=== PATIENT | male | born 1950 | race Caucasian/White ===

== ENCOUNTER 2020-02-28 08:30 | Inpatient (IN) ==
--- NOTE | 2020-02-04 15:32 | PAT Medication Instructions ---
Medication Instructions Date of Service February 04, 2020 Home Medications allopurinol 100 mg PO UD amlodipine 2.5 mg PO BID aspirin 81 mg PO QPM carvedilol 12.5 mg PO BID clopidogrel 75 mg PO QAM losartan 50 mg PO BID metformin 1,000 mg PO BID omeprazole 20 mg PO QAM pravastatin 40 mg PO BID tamsulosin 0.4 mg PO QAM terazosin 5 mg PO QPM ASK your prescriber and surgeon aspirin 81 mg PO QPM clopidogrel 75 mg PO QAM DO NOT take the morning of surgery losartan 50 mg PO BID metformin 1,000 mg PO BID Take morning of surgery With a small sip of water, OTHERWISE NOTHING TO EAT OR DRINK AFTER MIDNIGHT: allopurinol 100 mg PO UD amlodipine 2.5 mg PO BID carvedilol 12.5 mg PO BID omeprazole 20 mg PO QAM pravastatin 40 mg PO BID tamsulosin 0.4 mg PO QAM Take evening before surgery allopurinol 100 mg PO UD amlodipine 2.5 mg PO BID carvedilol 12.5 mg PO BID losartan 50 mg PO BID metformin 1,000 mg PO BID pravastatin 40 mg PO BID terazosin 5 mg PO QPM Other Notes If you have any questions please call us at [phone] or [phone] or [phone] or [phone]
--- NOTE | 2020-02-08 09:24 | Anesthesiology Consultation ---
Date of Service February 08, 2020 Assessment & Plan (1) Encounter for pre-operative examination: *Per PAT assessment on 02/07: Travel screen- Lives in [place]. Travel to [facility] for doctor appt. No other travel in past 30 days. Uses PPE. No kno wn COVID-19 positive contacts. No current COVID-19 related symptoms. Surgeon arranging preop COVID testing. Awaiting results. 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 CABG 1996. 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 Denies angina. No dyspnea. No change in occasional pedal edema or fatigue. F/U 6 months recommended. - ASA/plavix instructions per surgeon/prescriber. - Check BSG AM DOS Chart Review Chart Review: Acceptable Risk for Surgery and Patient seen in Pre Admission Testing Teaching & Discussion Pre-Anesthesia Teaching/Discussion Notes: Instructed NPO after midnight before surgery,except medications with 15 cc of water. Medication instructions provided according to the PAT guidelines. History Surgery Operation Date: 02/28/20 07:45 Proposed Procedures p L2-S1 Decompression and Fusion, Spinal Cord Monitoring - Erlin Lopez DO Height/Weight Height: 6 ft Weight: 124.1 kg Allergies Allergy/AdvReac Type Severity Reaction Status Date / Time iodine Allergy Vomiting Verified 02/02/20 09:49 shrimp Allergy Vomiting Verified 02/02/20 09:49 erythromycin base AdvReac Diarrhea Verified 02/02/20 09:49 Medications Home Medications Medication Instructions Recorded Confirmed Last Taken allopurinol 100 mg PO UD 02/02/20 02/02/20 Unknown amlodipine 2.5 mg PO BID 02/02/20 02/02/20 Unknown aspirin 81 mg PO QPM 02/02/20 02/02/20 Unknown carvedilol 12.5 mg PO BID 02/02/20 02/02/20 Unknown clopidogrel 75 mg PO QAM 02/02/20 02/02/20 Unknown losartan 50 mg PO BID 02/02/20 02/02/20 Unknown metformin 1,000 mg PO BID 02/02/20 02/02/20 Unknown omeprazole 20 mg PO QAM 02/02/20 02/02/20 Unknown pravastatin 40 mg PO BID 02/02/20 02/02/20 Unknown tamsulosin 0.4 mg PO QAM 02/02/20 02/02/20 Unknown terazosin 5 mg PO QPM 02/02/20 02/02/20 Unknown Past Medical History Medical History (Updated 02/09/20 @ 15:19 by Hedy Koch) CAD (coronary artery disease) CABG x4 (20+ years ago) Chronic kidney disease (CKD) follows with nephrology (Dr. Wallace/Jose) DM type 2 (diabetes mellitus, type 2) NIDDM Frequent urination at night GERD (gastroesophageal reflux disease) controlled Gout History of myocardial infarction 2016 HTN (hypertension) Hyperlipemia Obesity SHABBIR (obstructive sleep apnea) previously on CPAP- "no longer requires CPAP" since weight loss Osteoarthritis Spinal stenosis Exercise / Class Metabolic Activity III < 4 Walking/Shop/Light housework Past Family History Family History Uncle Diabetes Grandmother (Paternal) Diabetes Colon cancer Aunt Colon cancer Other No family history of adverse response to anesthesia Past Surgical History Surgical History History of cardiac cath multiple, most recent 2016- [place], [place] (no stents) History of colonoscopy History of coronary artery bypass graft CABG x4 (20+ years ago) History of esophagogastroduodenoscopy (EGD) History of inguinal hernia repair Left History of repair of right rotator cuff History of tonsillectomy History of tooth extraction Past Anesthesia History No Hx of Anesthesia Complications and No Family Hx of Anesthesia Complications History of PONV No Hx of PONV and No Hx of Motion Sickness Social History Smoking Status: Never smoker Do You Dip or Chew Tobacco: No Hx Alcohol Use: Yes Alcohol type: beer and hard liquor alcohol intake frequency: a few times a month Hx Substance Use: No substance use type: does not use Review of Systems Patient denies chest pain, shortness of breath, fever, chills, cough, wheezing, palpitations. Physical Exam Vital Signs VITALS BP 133/70 P 54 TEMP 98.3 SP02 95%RA RESP 18 PHYSICAL Full neck and c-spine range of motion. Full TMJ range of motion. TMD 3.5 finger breaths Mallampati Score 3 Dentition: missing upper left side tooth, + 3 caps upper front Lungs: clear throughout to auscultation Cardiac: regular rate and rhythm, no murmurs noted Spine: normal Carotid arteries: negative bruit Extremities: no edema Short neck Testing Laboratory Results PT 10.7 Seconds (9.0-12.0) 02/08/20 09:45 INR 1.0 (0.9-1.1) 02/08/20 09:45 APTT 31.5 Seconds (21.0-31.0) H 02/08/20 09:45 Urine Color Yellow 02/08/20 09:45 Urine Appearance Clear (Clear) 02/08/20 09:45 Urine pH 5.0 (4.5-7.5) 02/08/20 09:45 Ur Specific Barney 1.017 (1.000-1.030) 02/08/20 09:45 Urine Protein 3+ (Negative) H 02/08/20 09:45 Urine Glucose (UA) Negative (Negative) 02/08/20 09:45 Urine Ketones Negative (Negative) 02/08/20 09:45 Urine Nitrite Negative (Negative) 02/08/20 09:45 Ur Leukocyte Esterase Negative (Negative) 02/08/20 09:45 Urine WBC (Auto) 1-5 /hpf (0-5) 02/08/20 09:45 Urine RBC (Auto) 5-10 /hpf (0-4) H 02/08/20 09:45 U Hyaline Cast (Auto) 1-5 /lpf (0-5) 02/08/20 09:45 U Epithel Cells (Auto) 20-30 /lpf (0-5) H 02/08/20 09:45 Urine Bacteria (Auto) Negative (Negative) 02/08/20 09:45 Blood Type O Positive 02/08/20 09:45 Antibody Screen NEGATIVE 02/08/20 09:45 02/03/20 WBC 8.0 H/H 14.1/43.0 PLATELETS 227 SODIUM 139 POTASSIUM 4.2 CHLORIDE 106 CO2 24 BUN 28 CREATININE 1.6 GLUCOSE 109 12/09/19 HGBA1C 5.5% Electrocardiogram Date: 02/08/20 SB with first degree AVB. Low voltage QRS. unconfirmed report- report can be found in MUSE system Chest X-Ray Date: 02/08/20 FINDINGS: Cardiac silhouette is mildly enlarged. The lungs are clear. No pleural effusions. No pneumothorax. Poststernotomy changes. IMPRESSION: Mild cardiomegaly. Otherwise, no acute process within the chest. Echocardiogram Date: 11/07/15 EF 50%. Mild cLVH. Mild RVD. Slight LAD. Mild RAD. Mild MR.
--- NOTE | 2020-02-08 10:20 | XRay Report ---
XR chest 2V PA/lateral HISTORY: PREOP COMPARISON: None. FINDINGS: Cardiac silhouette is mildly enlarged. The lungs are clear. No pleural effusions. No pneumo thorax. Poststernotomy changes. IMPRESSION: Mild cardiomegaly. Otherwise, no acute process within the chest. ACT 112: Negative or not required by law. Electronically signed by: Aroldo Bueno M.D. 02/08/2020 10:18 AM
[2020-02-08 10:49] LABS: Appearance Urine Clear (Clear); Bacteria Urine Automated Negative (Negative); Bilirubin Urine Negative (Negative); Blood Urine Negative (Negative); Color Urine Yellow; Epithelial Cell Urine Auto 20-30 /lpf (0-5); Glucose Urine UA Negative (Negative); Ketones Urine Negative (Negative); Leukocyte Esterase Urine Negative (Negative); Nitrite Urine Negative (Negative); Protein Urine 3+ (Negative); Specific Gravity Urine 1.017 (1.000-1.030); Urobilinogen Urine Negative (Negative)
[2020-02-08 11:02] LABS: Partial Thromboplastin Ratio 1.1; Partial Thromboplastin Time 31.5 Seconds (21.0-31.0); Prothrombin Time 10.7 Seconds (9.0-12.0)
[~2020-02-28 08:30] MED LIST: ACETAMINOPHEN 500 MG TAB PO SCH; ALBUMIN HUMAN 5% 12.5 GM/250 ML VIAL IV ONE; CEFAZOLIN 3000MG 72.5 ML IV SCH; CeleBREX 200 MG CAP PO SCH; GABAPENTIN 300 MG CAP PO SCH; LR 15ML/HR IV SCH
[2020-02-28] MEDS ORDERED: ONDANSETRON INJ 2 MG/ML 2 ML VIAL IV PRN ×2 (08:59→15:16)
[2020-02-28] MEDS ORDERED: ATROPINE SULFATE 0.1 MG/ML 10ML SYR IV PRN (08:59)
[2020-02-28] MEDS ORDERED: PROMETHAZINE HCL 6.25 MG in SODIUM CHLORIDE 0.9% 50 ML IV PRN (08:59)
[2020-02-28] MEDS ORDERED: HYDROmorphone INJ 2 MG/ML SYR/VIAL IV PRN (08:59)
[2020-02-28] MEDS ORDERED: ePHEDrine sulfate 50 MG/ML AMP IV PRN (08:59)
--- NOTE | 2020-02-28 09:31 | History & Physical Bridge Note ---
Date of Service February 28, 2020 History & Physical Bridge Note I have examined the patient, reviewed the History & Physical and in the interval since the performance of the History & Physical I have noted the following changes of clinical significance: no changes noted
--- NOTE | 2020-02-28 09:32 | History & Physical Report ---
Date of Service February 28, 2020 Assessment & Plan (1) Neurogenic claudication due to lumbar spinal stenosis: Admission and Anticipated Discharge Date Admission Date: L2-S1 decompression fusion History of Present Illness Chief Complaint: Back and bilateral leg pain with weakness Primary Care Provider: Kit Navarro MD This is a 62-year-old male who presents with marked decline in status with back pain and bilateral leg weakness. After failing a course of nonoperative care is here for surgical intervention. Allergies Allergy/AdvReac Type Severity Reaction Status Date / Time erythromycin base AdvReac Severe Diarrhea Verified 02/28/20 09:02 iodine AdvReac Severe Vomiting Verified 02/28/20 09:02 shrimp AdvReac Severe Vomiting Verified 02/28/20 09:02 Home Medications Home Medications Medication Instructions Recorded Confirmed Type allopurinol 100 mg PO UD 02/02/20 02/28/20 History amlodipine [Norvasc] 2.5 mg PO BID 02/02/20 02/28/20 History aspirin 81 mg PO QPM 02/02/20 02/28/20 History carvedilol [Coreg] 12.5 mg PO BID 02/02/20 02/28/20 History clopidogrel 75 mg PO QAM 02/02/20 02/28/20 History losartan [Cozaar] 100 mg PO DAILY 02/02/20 02/28/20 History metformin 1,000 mg PO BID 02/02/20 02/28/20 History omeprazole 20 mg PO QAM 02/02/20 02/28/20 History pravastatin [Pravachol] 40 mg PO DAILY 02/02/20 02/28/20 History terazosin 5 mg PO QPM 02/02/20 02/28/20 History Past Med/Surg History Medical History (Updated 02/28/20 @ 09:32 by Erlin Lopez DO) CAD (coronary artery disease) CABG x4 (20+ years ago) Chronic kidney disease (CKD) follows with nephrology (Dr. Wallace/Jose) DM type 2 (diabetes mellitus, type 2) NIDDM Frequent urination at night GERD (gastroesophageal reflux disease) controlled Gout History of myocardial infarction 2016 HTN (hypertension) Hyperlipemia Obesity SHABBIR (obstructive sleep apnea) previously on CPAP- "no longer requires CPAP" since weight loss Osteoarthritis Spinal stenosis Surgical History History of cardiac cath multiple, most recent 2016- [facility], [place], [place] (no stents) History of colonoscopy History of coronary artery bypass graft CABG x4 (20+ years ago) History of esophagogastroduodenoscopy (EGD) History of inguinal hernia repair Left History of repair of right rotator cuff History of tonsillectomy History of tooth extraction Family History Uncle Diabetes Grandmother (Paternal) Diabetes Colon cancer Aunt Colon cancer Other No family history of adverse response to anesthesia Social History Smoking Status: Never smoker Second Hand Exposure: Yes ( is a smoker); Do You Dip or Chew Tobacco: No; Hx Alcohol Use: Yes Alcohol type: beer and hard liquor Hx Substance Use: No Preferred Language: Cuban Communication Ability: Effective Change Management Analyst Required: No Beliefs That Will Affect Care: None Current Living Situation: Spouse Feels Safe at Home: Yes Safety Concerns: Feels Safe At This Time Physical Exam Physical Exam: Patient alert and oriented with weakness to testing lower extremities. Heart regular rhythm. Lungs clear to auscultation. Results & Data ([facility]) Vital Signs (Past 12 Hours) Vital Signs Temp Pulse Resp BP Pulse Ox 02/28/20 09:09 37.3 C 61 20 185/97 H 96
[2020-02-28] MEDS ORDERED: BACITRACIN INJ 50,000 UNIT VIAL ONE (09:48)
[2020-02-28] MEDS ORDERED: BUPIVACAINE/EPINEPHRINE 0.25% 1:200,000 30 ML VIAL ONE (09:48)
[2020-02-28] MEDS ORDERED: fentaNYL citrate 100 MCG/2 ML VIAL ONE (09:49)
[2020-02-28] MEDS ORDERED: HYDROmorphone INJ 2 MG/ML SYR/VIAL ONE (09:49)
[2020-02-28] MEDS ORDERED: MIDAZOLAM HCL 1 MG/ML 2ML VIAL ONE (09:49)
[2020-02-28] MEDS ORDERED: PROPOFOL IV EMULSION 10 MG/ML 20 ML VIAL IV ONE (12:02)
[2020-02-28] MEDS ORDERED: ONDANSETRON INJ 2 MG/ML 2 ML VIAL ONE (12:02)
[2020-02-28] MEDS ORDERED: SUCCINYLCHOLINE CHLORIDE 20 MG/ML 10 ML VIAL IV ONE (12:02)
[2020-02-28] MEDS ORDERED: DEXAMETHASONE SOD INJ 4 MG/ML VIAL ONE (12:02)
[2020-02-28] MEDS ORDERED: NEOSTIGMINE METHYLSULFATE 1 MG/ML 10ML VIAL ONE (12:02)
[2020-02-28] MEDS ORDERED: GLYCOPYRROLATE 0.2 MG/ML VIAL ONE (12:02)
[2020-02-28] MEDS ORDERED: FLOSEAL HEMOSTATIC MATRIX 10ML TOP ONE (13:20)
[2020-02-28 13:25] LABS: iSTAT Creatinine 1.6 mg/dl (0.6-1.3); iSTAT Hemoglobin 11.6 g/dl (14.0-18.0); iSTAT Ionized Calcium 1.24 mmol/l (1.12-1.32); iSTAT Potassium 3.8 mmol/L (3.3-5.0)
--- NOTE | 2020-02-28 13:33 | Operative Report ---
Post Operative Report Pre & Post Diagnosis Operation Date: 02/28/20 09:55 Pre-Op Diagnosis: Spinal Stenosis, Lumbar Region with Neurogenic Claudication Post-Op Diagnosis: Spinal Stenosis, Lumbar Region with Neurogenic Claudication I identified the patient and participated in the time-out.: Yes Procedure Operation Date: 02/28/20 09:55 Actual Procedures 1. Lumbar decompression with bilateral medial facetectomies and foraminotomies L2-3, L3-4, L4-5 and L5-S1. #2 posterior spinal fusion L2-3, L3-4, L4-5 and L5- S1. #3 placement posterior segmental instrumentation L2-S1. #4 interbody fusion L4-5 and L5-S1. #5 placed a peek cage 9 x 26 mm at L4-5 and L5-S1. #6 placement locally harvested morselized autograft in the posterior lateral gutters. #7 placement infuse collagen sponge, master graft in the posterior gutters and ostial amp and interbody space. Surgeon Erlin Lopez, DO Transverse Abdominal Muscle Surgeon Marina Moses Estimated Blood Loss 600 Findings See Below Patient is 6 feet tall weighing over 121 kg with a BMI in excess of 36. This combined with an EBL of over 600 cc created significant technical difficulty. He required her deepest retractors and longus instruments in order to perform his procedure. This at least 50% increase to the operative time. Specimens None Indications This is a 62-year-old male who presents with above-mentioned diagnosis after failing stent graft care is here for evaluation procedure. Description of Procedure Patient was met with identified informed consent obtained. Patient was then taken to the operative suite underwent an patient placed in a prone position on the [place] table on top of the Gregory frame. All bony prominences well-padded eyes inspected to ensure no external pressure placed upon them. This point the lumbar spine is prepped and draped in a sterile fashion. Sharp dissection with the assistance of Bovie cautery was performed down to and exposing the lamina and transverse processes of L2-L3-L4 L5 and S1 levels bilaterally. From caudal cephalad fashion complete laminectomy of L5 L4 L3 and L2 was performed including bilateral medial facetectomies and foraminotomies at addressing severe spinal stenosis. Pedicle screws were then placed in L2 L3-L4-L5 and S1 levels bilaterally with assistance of fluoroscopy and the appropriately sized indira was placed. By way of a transfemoral approach on the right complete discectomy of L5-S1 was performed endplates coated to subcortical bleeding bone and a 9 x 26 mm peek cage filled with osteo-bone graft tapped in position. Then proceeded to L4-[address] of a trans-foraminal approach on the right a complete discectomy was performed endplates coated to subcortical being bone and again a 9 x 26 mm peek cage filled with osteo-bone graft tapped in position. The rods were then locked into final position bilaterally. The transverse processes of L2-L3-L4 L5 and sacral ala burred to subcortical bleeding bone. Infuse collagen sponge master graft local autograft was placed in the posterior lateral gutters. 15 round VESNA drain inserted. The incision was then closed with 1 Vicryl in the fascia 2-0 Vicryl subcutaneously and 4 Monocryl for final skin closure. Steri- Strip sterile dressings placed. Patient waken taken PACU stable condition. Please note spinal cord monitoring was utilized at the procedure no changes noted. Lastly Marina Moses was present at the entire procedure involved the patient positioning complex portions of the surgery and final skin closure. I attest to the content of the Intraoperative Record and any orders documented therein. Any exceptions are noted below.
--- NOTE | 2020-02-28 13:40 | Fluoroscopy Report ---
[place] lumbar spine 2-3V CLINICAL HISTORY: L2-S1 DECOMP/FUSION COMPARISON STUDY: Lumbar spine MRI December 30, 2019. FLUOROSCOPY TIME: 29 seconds. FLUOROSCOPIC IMAGES: 4 FINDINGS: Fluoroscopy was provided for L4-L5 and L5-S1 discectomies with interbody spacer placement. The L4-5 spacer is within the anterior aspect of the disc space. Posterior decompression is noted. Bi lateral pedicle screws at the L2, L3, L4, L5 and S1 levels are noted with interconnecting rods. Hardw are is intact. There are no unexpected radiopaque foreign bodies. IMPRESSION: Fluoroscopy provided for L4-5 and L5-S1 discectomies with posterior decompression and bi lateral pedicle screw fusion from L2 through S1. ACT 112: Negative or not required by law. Electronically signed by: Delvin Chapman M.D. 02/28/2020 1:38 PM
[2020-02-28] MEDS: fentaNYL citrate 100 MCG/2 ML VIAL IV PRN ×2 (14:13→14:18)
--- NOTE | 2020-02-28 14:25 | Anesthesiology Progress Note ---
Date of Service February 28, 2020 Anesthesia Post Procedure Vital Signs Vital Signs: Temp Pulse Pulse Resp BP BP Pulse Ox 02/28/20 14:20 58 L 18 137/72 97 02/28/20 14:10 58 L 18 150/89 H 98 02/28/20 14:00 61 18 153/78 H 98 02/28/20 13:54 37.1 C 66 18 144/65 H 96 02/28/20 09:09 37.3 C 61 20 185/97 H 96 Transfer of Care Handoff Completed per policy Notes Mental Status: alert / awake / arousable Patient Amnestic to Procedure: Yes Nausea / Vomiting: adequately controlled Pain: adequately controlled Airway Patency, RR, SpO2: stable & adequate BP & HR: stable & adequate Hydration State: stable & adequate Anesthetic Complications: no major complications apparent
[2020-02-28] MEDS ORDERED: ALUMINUM/MAGNESIUM SUSP 30 ML UDC PO PRN (15:16)
[2020-02-28] MEDS ORDERED: DO NOT ADMINISTER PNEUMOCOCCAL VACCINE PRN (15:16)
[2020-02-28] MEDS ORDERED: SOD PHOSPHATE/SOD BIPHOSPHATE ENEMA 132 ML BTL PR PRN (15:16)
[2020-02-28] MEDS ORDERED: ONDANSETRON 4 MG OD TAB PO PRN (15:16)
[2020-02-28] MEDS ORDERED: ACETAMINOPHEN 1,000 MG/100 ML VIAL IV PRN (15:16)
[2020-02-28] MEDS ORDERED: HYDROmorphone INJ 1 MG/ML SYRINGE IV PRN (15:16)
[2020-02-28] MEDS ORDERED: HYDROmorphone INJ 0.5 MG/0.5 ML SYR IV PRN (15:16)
[2020-02-28] MEDS ORDERED: METOCLOPRAMIDE HCL INJ 5 MG/ML 2 ML VIAL IV PRN (15:16)
[2020-02-28] MEDS ORDERED: NALOXONE HCL 0.4 MG/1 ML VIAL/CARP IV PRN (15:16)
[2020-02-28] MEDS ORDERED: LORazepam 0.5 MG TAB PO PRN (15:16)
[2020-02-28] MEDS ORDERED: ACETAMINOPHEN 500 MG TAB PO PRN (15:16)
[2020-02-28] MEDS ORDERED: PROMETHAZINE HCL 12.5 MG in SODIUM CHLORIDE 0.9% 50 ML IV PRN (15:16)
[2020-02-28] MEDS ORDERED: MAGNESIUM HYDROXIDE SUSP 30 ML UDC PO PRN (15:16)
[2020-02-28] MEDS ORDERED: LORazepam 0.5 MG/1 ML VIAL IV PRN (15:16)
[2020-02-28] MEDS ORDERED: DO NOT ADMINISTER FLU VACCINE PRN (15:16)
[2020-02-28] MEDS ORDERED: bisacodyL 10 MG SUPP PR PRN (15:16)
[2020-02-28] MEDS ORDERED: FAMOTIDINE 20 MG TAB PO PRN (15:16)
[2020-02-28] MEDS ORDERED: GLUCOSE 10 TABS/TUBE PO PRN (16:19)
[2020-02-28] MEDS ORDERED: GLUCOSE 40% GEL 15 GM TUBE PO PRN (16:19)
[2020-02-28] MEDS: TRAMADOL HCL 50 MG TABLET PO PRN (16:19)
[2020-02-28] MEDS ORDERED: CARBOHYDRATES FOR HYPOGLYCEMIA PO PRN (16:19)
[2020-02-28] MEDS ORDERED: GLUCAGON FOR INJ 1 MG VIAL SQ PRN (16:19)
[2020-02-28] MEDS ORDERED: DEXTROSE 50% 50 ML SYRINGE IV PRN (16:19)
[2020-02-28] MEDS: SODIUM CHLORIDE 0.9% 1000ML 1,000 ML IV SCH ×2 (16:20→21:52)
[2020-02-28] MEDS ORDERED: ESMOLOL HCL INJ 10 MG/ML 10ML VIAL IV ONE (17:01)
--- NOTE | 2020-02-28 17:16 | Hospitalist Consultation ---
Date of Consultation February 28, 2020 Assessment & Plan (1) S/P spinal surgery: This is a 70yo M with a PMH of CAD with h/o CABG, DM II, HTN, gout and other medical problems listed below who is POD#0 s/p L2-S1 decompression and fusion by Dr. Lopez. -POD#0 s/p L2-S1 decompression and fusion by Dr. Lopez -Pt is doing well post-operatively -Per ortho for pain control, wound care, anticoagulation and activities -Monitor H&H (EBL: 600ml, VESNA output: 270ml, post op hgb 11.6- baseline unknown), continue incentive spirometry, PT/OT when appropriate -Repeat H&H this evening at 2000 (2) DM type 2 (diabetes mellitus, type 2): A1c pending -Hold home agents -SSI while in-patient -BSG AC HS (3) CAD (coronary artery disease): H/o CABG >20 years ago. Recent cardiac catheterization 02/25/20 with instruction to continue medical treatment for secondary prevention of CAD -Continue baby aspirin, statin, beta-damian -Plavix held, per orthopedic service (4) HTN (hypertension): Continue carvedilol (5) Chronic kidney disease (CKD): CKD documented in chart, no baseline Cr available but postop Cr of 1.6. BMP scheduled for tomorrow AM -Plan to hold losartan in AM (6) Urinary retention: Continue terazosin. Monitor with bladder scans PRN once davis catheter is removed (7) GERD (gastroesophageal reflux disease): Continue PPI PCP: Kit Navarro Dispo: Per primary service Patient seen in collaboration with Dr. Eldridge. Please see addendum. Supervising Physician Co-Signing Physician Notes Attending Addendum: care coordinated with BANDAR Mohr please refer to her notes for full details, I agree with her notes patient seen and examined, records reviewed by myself as well on exam, patient seen resting in chair, comfortable, oriented x 3 states he feels fine overall denies pain at the time of my exam no chest pain, dyspnea, dizziness, palpitations no other symptoms VS noted and reviewed oriented x 3 , not in distress, speaks in sentences with no effort nor accessory muscle use normal rate, regular rhythm, no murmurs clear breath sounds bilaterally non distended, soft, nontender back: dressing in place- no bleeding, discharge VESNA drain in place- minimal blood noted no bipedal edema, erythema, warmth no neuro deficits Hg 11.6 Crea 1.6 ASSESSMENT AND PLAN S/P BACK SURGERY EBL 600 repeat Hg pending at 8pm HISTORY OF CAD Plavix on hold per Ortho, resume when ok with Ortho SVC continue ASA, Carvedilol HYPERTENSION BP on the low normal side hold Amlodipine, Losartan continue Carvedilol monitor BP and resume BP meds accordingly other diagnoses and plan of care as per BANDAR Mohr's notes Renato Eldridge MD History of Present Illness Reason for Consultation: post op medical mgmt Attending Physician: Erlin Lopez, DO History of Present Illness This is a 70yo M with a PMH of CAD with h/o CABG, DM II, HTN, gout and other medical problems listed below who is POD#0 s/p L2-S1 decompression and fusion by Dr. Lopez. Patient is feeling well postoperatively. Endorses some surgical site pain but denies paresthesias or weakness. Denies nausea, vomiting or abdominal pain. No lightheadedness, chest pain, palpitations, SOB, dysuria, diarrhea or constipation. Last bowel movement was this morning. Allergies Allergy/AdvReac Type Severity Reaction Status Date / Time erythromycin base AdvReac Severe Diarrhea Verified 02/28/20 09:02 iodine AdvReac Severe Vomiting Verified 02/28/20 09:02 shrimp AdvReac Severe Vomiting Verified 02/28/20 09:02 Home Medications Home Medications Medication Instructions Recorded Confirmed Type allopurinol 100 mg PO UD 02/02/20 02/28/20 History amlodipine [Norvasc] 2.5 mg PO BID 02/02/20 02/28/20 History aspirin 81 mg PO QPM 02/02/20 02/28/20 History carvedilol [Coreg] 12.5 mg PO BID 02/02/20 02/28/20 History clopidogrel 75 mg PO QAM 02/02/20 02/28/20 History losartan [Cozaar] 100 mg PO DAILY 02/02/20 02/28/20 History metformin 1,000 mg PO BID 02/02/20 02/28/20 History omeprazole 20 mg PO QAM 02/02/20 02/28/20 History pravastatin [Pravachol] 40 mg PO HS 02/02/20 02/28/20 History terazosin 5 mg PO QPM 02/02/20 02/28/20 History Patient History Medical History (Updated 02/28/20 @ 17:25 by Radha Mohr PA-C) CAD (coronary artery disease) CABG x4 (20+ years ago) Chronic kidney disease (CKD) follows with nephrology (Dr. Wallace/Jose) DM type 2 (diabetes mellitus, type 2) NIDDM GERD (gastroesophageal reflux disease) controlled Gout History of myocardial infarction 2016 HTN (hypertension) Hyperlipemia Obesity SHABBIR (obstructive sleep apnea) previously on CPAP- "no longer requires CPAP" since weight loss Osteoarthritis Spinal stenosis Urinary retention Surgical History (Updated 02/28/20 @ 17:26 by Radha Mohr PA-C) History of cardiac cath multiple, most recent 2016- [place], [place] (no stents) History of colonoscopy History of coronary artery bypass graft CABG x4 (20+ years ago) History of esophagogastroduodenoscopy (EGD) History of inguinal hernia repair Left History of repair of right rotator cuff History of tonsillectomy History of tooth extraction Family History Uncle Diabetes Grandmother (Paternal) Diabetes Colon cancer Aunt Colon cancer Other No family history of adverse response to anesthesia Social History Smoking Status: Never smoker Second Hand Exposure: Yes ( is a smoker); Do You Dip or Chew Tobacco: No; Hx Alcohol Use: Yes Alcohol type: beer and hard liquor Hx Substance Use: No Preferred Language: Portuguese Communication Ability: Effective Salesperson Men'S Furnishings Required: No Beliefs That Will Affect Care: None Current Living Situation: Spouse Feels Safe at Home: Yes Safety Concerns: Feels Safe At This Time Review of Systems Review of Systems: At least ten systems reviewed and negative except as noted in the HPI. Physical Exam Physical Exam: General Appearance: WD/WN, vitals as above, NAD, sitting up in bed, pleasant, conversing easily Head: normocephalic, atraumatic Eyes: normal inspection, PERRL, conjunctivae normal, anicteric sclerae ENT: external ear and nose normal, oropharynx normal Neck: normal visual inspection, trachea midline, no thyromegaly Respiratory: normal respiratory effort, lungs clear to auscultation, no wheeze, rales, rhonchi Cardiovascular: regular rate, rhythm, no murmur, normal peripheral pulses, no BLE edema Abdomen/GI: normal bowel sounds, soft, nontender, no hepatosplenomegaly Extremities/Musculoskeletal: + Lumbosacral dressing clean, dry, intact. + VESNA drain visualized. No cyanosis or clubbing, extremities motor strength 5/5 Neurologic: PERRL, CN's II-XI intact bilaterally and moves all extremities Psychiatric: A+Ox3, euthymic affect Skin: no rashes, normal color, warm/dry Results & Data Results & Data ([facility]) Vital Signs (Past 12 Hours) Vital Signs Temp Pulse Pulse Pulse Resp BP BP 02/28/20 15:56 36.7 C 50 L 17 160/74 H 02/28/20 15:18 36.5 C 57 L 16 170/85 H 02/28/20 14:30 36.9 C 61 18 138/81 02/28/20 14:20 58 L 18 137/72 02/28/20 14:10 58 L 18 150/89 H 02/28/20 14:00 61 18 153/78 H 02/28/20 13:54 37.1 C 66 18 144/65 H 02/28/20 09:09 37.3 C 61 20 185/97 H Pulse Ox 02/28/20 15:56 96 02/28/20 15:18 97 02/28/20 14:30 99 02/28/20 14:20 97 02/28/20 14:10 98 02/28/20 14:00 98 02/28/20 13:54 96 02/28/20 09:09 96
[2020-02-28] MEDS: CEFAZOLIN 2000MG 2,000 MG/15 ML SYR IV SCH (18:06)
[2020-02-28] MEDS: INSULIN ASPART 100 UNITS/ML 3 ML PEN SC SCH ×2 (18:08→21:45)
[2020-02-28 20:41] LABS: Hematocrit (blood only) 32.6 % (42-52); Hemoglobin 11.2 g/dL (14.0-18.0)
[2020-02-28] MEDS ORDERED: AMLODIPINE BESYLATE 5 MG TAB PO SCH (21:00)
[2020-02-28] MEDS: carvediloL 12.5 MG TAB PO SCH (21:41)
[2020-02-28] MEDS: TERAZOSIN HCL 5 MG CAP PO SCH (21:46)
[2020-02-28] MEDS: allopurinoL 100 MG TAB PO SCH (21:48)
[2020-02-28] MEDS: DOCUSATE SODIUM/SENNA 50/8.6MG TAB PO SCH (21:49)
[2020-02-28] MEDS: ASPIRIN 81 MG ECTAB PO SCH (21:50)
[2020-02-29] MEDS: TRAMADOL HCL 50 MG TABLET PO PRN ×3 (01:54→16:42)
[2020-02-29] MEDS: CEFAZOLIN 2000MG 2,000 MG/15 ML SYR IV SCH (01:54)
[2020-02-29] MEDS: SODIUM CHLORIDE 0.9% 1000ML 1,000 ML IV SCH (04:16)
[2020-02-29] MEDS: POLYETHYLENE (MIRALAX) 17 GM PACK PO SCH ×3 (05:31→17:18)
[2020-02-29 06:12] LABS: Hematocrit (blood only) 28.7 % (42-52); Immature Granulocytes # (auto) 0.01 K/uL (0.00-0.02); Immature Granulocytes % (auto) 0.1 %; Lymphocytes # (auto) 0.92 K/uL (1.2-3.4); Lymphocytes % (auto) 9.6 %; Mean Corpuscular Hemoglobin 31.3 pg (25-34); Mean Corpuscular Hgb Conc 34.8 g/dL (32-36); Monocytes # (auto) 0.83 K/uL (0.11-0.59); Monocytes % (auto) 8.7 %; Neutrophils # (auto) 7.81 K/uL (1.4-6.5); Neutrophils % (auto) 81.6 %; Platelet Count 175 K/uL (130-400); RDW Coefficient of Variation 13.4 % (11.5-14.5); RDW Standard Deviation 43.9 fL (36.4-46.3); Red Blood Count 3.19 M/uL (4.7-6.1); White Blood Count 9.57 K/uL (4.8-10.8)
[2020-02-29 06:45] LABS: BUN Creatinine Ratio 17.2 (10-20); Calcium 8.1 mg/dl (8.5-10.1); Creatinine Clr Calc Pharmacy 67.9 ml/min; Est GFR (African American) 59.4; Est GFR (Non-African American) 51.3
[2020-02-29 06:53] LABS: Estimated Average Glucose 120 mg/dl; Hemoglobin A1C 5.8 % (4.5-5.6)
[2020-02-29] MEDS: allopurinoL 100 MG TAB PO SCH ×2 (09:03→21:43)
[2020-02-29] MEDS: carvediloL 12.5 MG TAB PO SCH ×2 (09:03→21:41)
[2020-02-29] MEDS: PANTOprazole 40 MG TAB PO SCH (09:03)
[2020-02-29] MEDS: PRAVASTATIN SOD 40 MG TAB PO SCH (09:04)
[2020-02-29] MEDS: INSULIN ASPART 100 UNITS/ML 3 ML PEN SC SCH ×4 (09:08→22:26)
--- NOTE | 2020-02-29 09:56 | Orthopedic Progress Note ---
Date of Service February 29, 2020 Assessment & Plan (1) Neurogenic claudication due to lumbar spinal stenosis: Admission and Anticipated Discharge Date Admission Date: February 28, 2020 This time continue physical therapy monitor his VESNA output anticipate discharge home in the next few days. Subjective Patient's back pain is controlled leg symptoms improved. Physical Exam Physical Exam: Patient has good strength testing appears comfortable. Results & Data ([facility]) Vital Signs (Past 12 Hours) Vital Signs Temp Pulse Pulse Resp BP Pulse Ox 02/29/20 07:52 36.7 C 69 18 157/64 H 94 02/29/20 03:18 36.6 C 68 18 128/66 93 02/28/20 23:00 36.4 C L 50 L 20 114/65 92
--- NOTE | 2020-02-29 10:27 | Hospitalist Progress Note ---
Date of Service February 29, 2020 Assessment & Plan (1) S/P spinal surgery: This is a 70yo M with a PMH of CAD with h/o CABG, DM II, HTN, gout and other medical problems listed below who is POD#1 s/p L2-S1 decompression and fusion by Dr. Lopez. POD#1 s/p L2-S1 decompression and fusion by Dr. Lopez EBL #600ml, VESNA output total 720ml -Pt is doing well post-operatively -pain management per ortho -wound management per ortho -PT/OT as appropriate -DVT prophylaxis per ortho - SCDs -incentive spirometry -Hgb:10.0, post op Hgb: 11.6. Unsure of pre-op Hgb. Continue to monitor H&H (2) DM type 2 (diabetes mellitus, type 2): A1c: 5.8 -Hold home agents -Novolog sliding scale per protocol -BSG AC HS (3) CAD (coronary artery disease): H/o CABG >20 years ago. Recent cardiac catheterization 02/25/20 with i nstruction to continue medical treatment for secondary prevention of CAD -Continue baby aspirin, statin, beta-damian -Plavix held, per orthopedic service; resume per ortho (4) HTN (hypertension): -Continue carvedilol -Resume losartan and Norvasc (5) Chronic kidney disease (CKD): CKD documented in chart, no baseline Cr available. Postop POC Cr of 1.6. Cr: 1.4 -Resume losartan (6) Urinary retention: -Continue terazosin. -Monitor with bladder scans PRN once davis catheter is removed (7) GERD (gastroesophageal reflux disease): Continue PPI PCP: Kit Navarro Dispo: Per primary service Patient seen in collaboration with Dr. Cannon. Please see addendum. Thank you for this consultation. We will follow the patient with you during their hospital stay. You can reach a member of the [facility] Hospitalist Team 20/01 via pager @ [phone]. Admission and Anticipated Discharge Date Admission Date: February 28, 2020 Supervising Physician Co-Signing Physician Notes I have seen and examined the patient and have discussed the case with the provider above. I agree with the assessment and plan as stated. My physical exam reflects that above. He is doing well overall. Thank you for this consultation and we will follow him throughout the rest of his hospitalization. DO Davis Subjective Pt seen and examined. Sitting up in bed. Reports back pain moderately controlle d. Reports less leg pain than prior to surgery, still with some numbness to right leg. Denies any SOB, CP, N/V. Eating and drinking well. Still has Davis cath in place. Had BM yesterday prior to surgery, no BM yet today. Is passing flatus. Denies fever/chills, diaphoresis, CHAVIS, dizziness, neck pain, palpitations, cough, abdominal pain, extremity weakness, extremity edema, rashes. Review of Systems Review of Systems: All systems reviewed & are unremarkable except as noted in HPI & below Physical Exam Physical Exam: General: no distress, obese Head: normocephalic, atraumatic Eyes: conjunctiva non-injected, anicteric ENT: normal inspection external ears, nose, mucous membranes moist Neck: supple, trachea midline Lungs: clear, no respiratory distress, no wheezing/rhonchi/rales CV: RRR, no murmur, no pretibial edema Abd: normal BS, soft, non-tender Ext: no cyanosis or erythema, + venous stasis skin discoloration bilateral lower legs, no calf tenderness; bilateral pedal pushes and pulls intact Neuro: A&O x 3, no focal deficits noted, normal affect Skin: warm, dry Results & Data Results & Data ([facility]) Vital Signs (Past 12 Hours) Vital Signs Temp Pulse Pulse Resp BP Pulse Ox 02/29/20 07:52 36.7 C 69 18 157/64 H 94 02/29/20 03:18 36.6 C 68 18 128/66 93 02/28/20 23:00 36.4 C L 50 L 20 114/65 92 Laboratory Results Short CBC 02/28/20 02/29/20 Range/Units 19:53 05:04 WBC 9.57 (4.8-10.8) K/uL Hgb 11.2 L 10.0 L (14.0-18.0) g/dL Hct 32.6 L 28.7 L (42-52) % Plt Count 175 (130-400) K/uL BMP 02/29/20 05:04 Sodium 138 Potassium 4.0 Chloride 106 Carbon Dioxide 26 BUN 24 H Creatinine 1.40 Glucose 126 H Calcium 8.1 L
--- NOTE | 2020-02-29 19:36 | Ultrasound Report ---
ULTRASOUND RIGHT LOWER EXTREMITY VENOUS CLINICAL HISTORY: Right calf pain and cramping. COMPARISON STUDY: No priors. TECHNIQUE: Real-time, grayscale, and color Doppler sonography of the deep veins of the right lower ex tremity was performed from the inguinal crease to the calf. Compression and augmentation were utilize d. FINDINGS: There is no sonographic evidence of deep venous thrombosis identified in the right lower ex tremity. The common femoral, superficial femoral, and popliteal veins are patent and normally denise sible. The greater saphenous vein and the profunda femoris vein at the junction with the common femor al vein are clear. The visualized calf veins are patent. IMPRESSION: There is no sonographic evidence of deep venous thrombosis identified in the right lower extremity. ACT 112: Negative or not required by law. Electronically signed by: Jarett Merlos M.D. 02/29/2020 7:34 PM
[2020-02-29] MEDS: TERAZOSIN HCL 5 MG CAP PO SCH (21:41)
[2020-02-29] MEDS: DOCUSATE SODIUM/SENNA 50/8.6MG TAB PO SCH (21:42)
[2020-02-29] MEDS: ASPIRIN 81 MG ECTAB PO SCH (21:44)
[2020-02-29] MEDS: AMLODIPINE BESYLATE 5 MG TAB PO SCH (21:46)
[2020-02-29] MEDS: OXYCODONE HCL IR 5 MG TAB (IMMEDIATE RELEASE) PO PRN (21:50)
[2020-03-01] MEDS: POLYETHYLENE (MIRALAX) 17 GM PACK PO SCH (03:34)
[2020-03-01] MEDS: TRAMADOL HCL 50 MG TABLET PO PRN ×3 (05:41→23:14)
[2020-03-01 06:10] LABS: Hematocrit (blood only) 25.3 % (42-52); Hemoglobin 8.8 g/dL (14.0-18.0); Mean Corpuscular Hemoglobin 31.5 pg (25-34); Mean Corpuscular Hgb Conc 34.8 g/dL (32-36); Mean Corpuscular Volume 90.7 fL (80-100); Mean Platelet Volume 10.6 fL (7.4-10.4); Platelet Count 164 K/uL (130-400); RDW Coefficient of Variation 13.7 % (11.5-14.5); RDW Standard Deviation 45.4 fL (36.4-46.3); Red Blood Count 2.79 M/uL (4.7-6.1); White Blood Count 8.54 K/uL (4.8-10.8)
[2020-03-01 06:53] LABS: BUN Creatinine Ratio 16.9 (10-20); Calcium 8.3 mg/dl (8.5-10.1); Creatinine Clr Calc Pharmacy 62.1 ml/min; Est GFR (African American) 53.4; Potassium 3.8 mmol/L (3.5-5.1)
[2020-03-01] MEDS: allopurinoL 100 MG TAB PO SCH ×2 (07:44→21:21)
[2020-03-01] MEDS: PRAVASTATIN SOD 40 MG TAB PO SCH (07:44)
[2020-03-01] MEDS: PANTOprazole 40 MG TAB PO SCH (07:44)
[2020-03-01] MEDS: AMLODIPINE BESYLATE 5 MG TAB PO SCH ×2 (07:44→21:20)
[2020-03-01] MEDS: OXYCODONE HCL IR 5 MG TAB (IMMEDIATE RELEASE) PO PRN ×3 (07:45→21:20)
[2020-03-01] MEDS: carvediloL 12.5 MG TAB PO SCH ×2 (07:45→21:20)
[2020-03-01] MEDS: LOSARTAN POTASSIUM 50 MG TAB PO SCH (07:45)
[2020-03-01] MEDS: INSULIN ASPART 100 UNITS/ML 3 ML PEN SC SCH ×4 (07:48→21:25)
--- NOTE | 2020-03-01 12:14 | Hospitalist Progress Note ---
Date of Service March 01, 2020 Assessment & Plan (1) Acute blood loss anemia: (2) S/P spinal surgery: 70yo M with a PMH of CAD with h/o CABG, DM II, HTN, gout who is POD#2 s/p L2-S1 decompression and fusion by Dr. Lopez. POD#2 s/p L2-S1 decompression and fusion by Dr. Lopez EBL #600ml, VESNA output total so far is 1170ml (though slowly improving day to day) Hb dropped from 10 to 8.8 Will continue to monitor Hb and transfuse as needed if <7 or symptomatic Pain management per ortho, well controlled Wound management per ortho PT/OT DVT prophylaxis per ortho - SCDs (3) DM type 2 (diabetes mellitus, type 2): A1c: 5.8 Continue to hold home agents Novolog sliding scale per protocol BSG AC HS (4) CAD (coronary artery disease): H/o CABG >20 years ago. Recent cardiac catheterization 02/25/20 with instruction to continue medical treatment for secondary prevention of CAD Continue aspirin 81mg , pravastatin, carvedilol Plavix held for now (5) HTN (hypertension): Controlled Continue carvedilol, losartan and Norvasc (6) Chronic kidney disease (CKD): CKD documented in chart, no baseline Cr available. Postop POC Cr of 1.6. Cr: 1.53 today Continue to monitor (7) Urinary retention: Continue terazosin. Monitor with bladder scans PRN once davis catheter is removed. Can remove davis once ok with Primary orthopedic team (8) GERD (gastroesophageal reflux disease): Continue PPI PCP: Kit Navarro Dispo: Per primary service Will follow the patient with you during their hospital stay. You can reach a [facility] via pager @ . Admission and Anticipated Discharge Date Admission Date: February 28, 2020 Subjective Patient seen and examined Reports some low back pain but stated this is better than yesterday. Still has drain with bloody drainage. Denied any dizziness, palpitation, SOB, REDDY Denied any chest pain, cough Denied any dysuria, hematuria. Denied abd pain, distension, diarrhea. Reports no BM since 02/27 Physical Exam Constitutional: + well hydrated and + obese; no acute distress Eyes: PERRL, conjunctivae normal, anicteric sclerae ENMT: external ear and nose normal, oropharynx normal Respiratory: normal respiratory effort, lungs clear to auscultation Cardiovascular: RRR, no murmur, no edema Gastrointestinal (Abdomen): normal bowel sounds, soft, nontender, no hepatosplenomegaly Musculoskeletal: Dressing over low back with some bloody stains VESNA drain in situ with bloody drainage Neurologic: PERRL, EOMI, accommodation nl, no face palsy, no dysarthria Psychiatric: A+Ox3, euthymic affect Results & Data Results & Data ([facility]) Vital Signs (Past 12 Hours) Vital Signs Temp Pulse Resp BP Pulse Ox 03/01/20 07:04 36.8 C 72 20 111/72 92 Laboratory Results Laboratory Results - last 24 hr 02/29/20 02/29/20 03/01/20 17:10 20:38 05:24 WBC 8.54 RBC 2.79 L Hgb 8.8 L Hct 25.3 L MCV 90.7 MCH 31.5 MCHC 34.8 RDW Std Deviation 45.4 RDW Coeff of Yola 13.7 Plt Count 164 MPV 10.6 H Sodium Potassium Chloride Carbon Dioxide Anion Gap BUN Creatinine Est Cr Clr Drug Dosing Est GFR ( Amer) Est GFR (Non-Af Amer) BUN/Creatinine Ratio Glucose POC Glucose 145 H 126 H Calcium 03/01/20 03/01/20 03/01/20 05:24 06:55 12:07 WBC RBC Hgb Hct MCV MCH MCHC RDW Std Deviation RDW Coeff of Yola Plt Count MPV Sodium 137 Potassium 3.8 Chloride 105 Carbon Dioxide 25 Anion Gap 7.0 BUN 26 H Creatinine 1.53 H Est Cr Clr Drug Dosing 62.1 Est GFR ( Amer) 53.4 Est GFR (Non-Af Amer) 46.0 BUN/Creatinine Ratio 16.9 Glucose 125 H POC Glucose 132 H 127 H Calcium 8.3 L
--- NOTE | 2020-03-01 13:43 | Orthopedic Progress Note ---
Date of Service March 01, 2020 Assessment & Plan (1) Neurogenic claudication due to lumbar spinal stenosis: Admission and Anticipated Discharge Date Admission Date: February 28, 2020 This time we will continue physical therapy monitor his VESNA output hopefully di gretta home in the next few days. We will have [facility] come in and fit him with this AFOs. Subjective Patient's back pain is controlled leg symptoms markedly improved. Physical Exam Physical Exam: Patient is in the chair at the bedside. Is good strength testing. Results & Data ([facility]) Vital Signs (Past 12 Hours) Vital Signs Temp Pulse Resp BP Pulse Ox 03/01/20 07:04 36.8 C 72 20 111/72 92
[2020-03-01] MEDS: POLYETHYLENE (MIRALAX) 17 GM PACK PO PRN (13:48)
[2020-03-01] MEDS: TERAZOSIN HCL 5 MG CAP PO SCH (21:21)
[2020-03-01] MEDS: ASPIRIN 81 MG ECTAB PO SCH (21:21)
[2020-03-01] MEDS: DOCUSATE SODIUM/SENNA 50/8.6MG TAB PO SCH (21:21)
[2020-03-02 07:13] LABS: Hematocrit (blood only) 23.2 % (42-52); Hemoglobin 8.1 g/dL (14.0-18.0); Mean Corpuscular Hemoglobin 31.5 pg (25-34); Mean Corpuscular Hgb Conc 34.9 g/dL (32-36); Mean Corpuscular Volume 90.3 fL (80-100); Mean Platelet Volume 10.7 fL (7.4-10.4); Platelet Count 174 K/uL (130-400); RDW Coefficient of Variation 13.8 % (11.5-14.5); RDW Standard Deviation 45.5 fL (36.4-46.3); Red Blood Count 2.57 M/uL (4.7-6.1); White Blood Count 7.79 K/uL (4.8-10.8)
[2020-03-02 07:44] LABS: Calcium 8.3 mg/dl (8.5-10.1); Creatinine Clr Calc Pharmacy 49.3 ml/min; Est GFR (African American) 40.3; Est GFR (Non-African American) 34.8; Potassium 3.7 mmol/L (3.5-5.1)
--- NOTE | 2020-03-02 08:02 | Orthopedic Progress Note ---
Date of Service March 02, 2020 Assessment & Plan (1) Neurogenic claudication due to lumbar spinal stenosis: Admission and Anticipated Discharge Date Admission Date: February 28, 2020 This time we will discontinue his [place] today continue to advance his bowel re giment monitor his progress anticipate discharge home tomorrow. Subjective Back pain controlled leg pain improved Physical Exam Physical Exam: Patient is in the chair at the bedside with strength testing. Results & Data ([facility]) Vital Signs (Past 12 Hours) Vital Signs Temp Pulse Pulse Resp BP Pulse Ox 03/02/20 07:55 36.9 C 80 16 110/65 92 03/01/20 23:12 36.7 C 76 20 118/58 L 94 03/01/20 21:19 36.6 C 78 20 108/67 90
[2020-03-02] MEDS: AMLODIPINE BESYLATE 5 MG TAB PO SCH ×2 (08:59→21:10)
[2020-03-02] MEDS: PANTOprazole 40 MG TAB PO SCH (08:59)
[2020-03-02] MEDS: LOSARTAN POTASSIUM 50 MG TAB PO SCH (08:59)
[2020-03-02] MEDS: carvediloL 12.5 MG TAB PO SCH ×2 (09:00→21:10)
[2020-03-02] MEDS: allopurinoL 100 MG TAB PO SCH ×2 (09:00→21:10)
[2020-03-02] MEDS: PRAVASTATIN SOD 40 MG TAB PO SCH (09:00)
[2020-03-02] MEDS: INSULIN ASPART 100 UNITS/ML 3 ML PEN SC SCH ×4 (09:02→21:42)
[2020-03-02] MEDS: OXYCODONE HCL IR 5 MG TAB (IMMEDIATE RELEASE) PO PRN ×3 (09:05→23:53)
--- NOTE | 2020-03-02 13:13 | Hospitalist Progress Note ---
Date of Service March 02, 2020 Assessment & Plan (1) Acute blood loss anemia: (2) S/P spinal surgery: 70yo M with a PMH of CAD with h/o CABG, DM II, HTN, gout who is POD#3 s/p L2-S1 decompression and fusion by Dr. Lopez. POD#3 s/p L2-S1 decompression and fusion by Dr. Lopez EBL #600ml, VESNA output total so far is 35111ch (though only 70cc so far today; significantly reduced) Hb dropped from 10 to 8.8 yesterday, stable at 8.1 today Will continue to monitor Hb and transfuse as needed if <7 or symptomatic Pain management per ortho, well controlled Wound management per ortho PT/OT eval noted. Continue PT while inpatient DVT prophylaxis per ortho (3) DM type 2 (diabetes mellitus, type 2): A1c: 5.8 Continue to hold home agents Novolog sliding scale per protocol BSG AC HS (4) CAD (coronary artery disease): H/o CABG >20 years ago. Recent cardiac catheterization 02/25/20 with instruction to continue medical treatment for secondary prevention of CAD Continue aspirin 81mg , pravastatin, carvedilol Plavix held for now (5) HTN (hypertension): Controlled Continue carvedilol and Norvasc Cr jumped to 1.9 from 1.53 yesterday Hold losartan for now (6) Chronic kidney disease (CKD): CKD documented in chart, no baseline Cr available. Postop POC Cr of 1.6. Cr jumped to 1.9 from 1.53 yesterday ?LURDES on CKD or CKD Holding losartan for now Gentle IVF and monitor (7) Urinary retention: Continue terazosin. Monitor with bladder scans PRN once davis catheter is removed. Can remove davis once ok with Primary orthopedic team (8) GERD (gastroesophageal reflux disease): Continue PPI PCP: Kit Navarro Dispo: Per primary service Will continue to follow the patient with you during their hospital stay. You can [facility] a [facility] via pager @ [phone]. Admission and Anticipated Discharge Date Admission Date: February 28, 2020 Subjective Patient seen and examined. Back pain well controlled Still some occasional claudication with walking Denied any other complaints Physical Exam Constitutional: + well hydrated and + obese; no acute distress Eyes: PERRL, conjunctivae normal, anicteric sclerae ENMT: external ear and nose normal, oropharynx normal Respiratory: normal respiratory effort, lungs clear to auscultation Cardiovascular: RRR, no murmur, no edema Gastrointestinal (Abdomen): normal bowel sounds, soft, nontender, no hepatosplenomegaly Musculoskeletal: Dressing over low back with some bloody stains VESNA drain in situ with bloody drainage Trace leg edema Neurologic: PERRL, EOMI, accommodation nl, no face palsy, no dysarthria Psychiatric: A+Ox3, euthymic affect Results & Data Results & Data ([facility]) Vital Signs (Past 12 Hours) Vital Signs Temp Pulse Resp BP Pulse Ox 03/02/20 07:55 36.9 C 80 16 110/65 92 Laboratory Results Laboratory Results - last 24 hr 02/28/20 03/01/20 03/01/20 08:49 17:07 20:55 WBC RBC Hgb Hct MCV MCH MCHC RDW Std Deviation RDW Coeff of Yola Plt Count MPV Sodium Potassium Chloride Carbon Dioxide Anion Gap BUN Creatinine Est Cr Clr Drug Dosing Est GFR ( Amer) Est GFR (Non-Af Amer) BUN/Creatinine Ratio Glucose POC Glucose 142 H 148 H Calcium Crossmatch See Detail 03/02/20 03/02/20 03/02/20 06:30 06:30 08:09 WBC 7.79 RBC 2.57 L Hgb 8.1 L Hct 23.2 L MCV 90.3 MCH 31.5 MCHC 34.9 RDW Std Deviation 45.5 RDW Coeff of Yola 13.8 Plt Count 174 MPV 10.7 H Sodium 134 L Potassium 3.7 Chloride 103 Carbon Dioxide 23 Anion Gap 8.0 BUN 33 H Creatinine 1.93 H D Est Cr Clr Drug Dosing 49.3 Est GFR ( Amer) 40.3 Est GFR (Non-Af Amer) 34.8 BUN/Creatinine Ratio 17.0 Glucose 121 H POC Glucose 147 H Calcium 8.3 L Crossmatch 03/02/20 12:12 WBC RBC Hgb Hct MCV MCH MCHC RDW Std Deviation RDW Coeff of Yola Plt Count MPV Sodium Potassium Chloride Carbon Dioxide Anion Gap BUN Creatinine Est Cr Clr Drug Dosing Est GFR ( Amer) Est GFR (Non-Af Amer) BUN/Creatinine Ratio Glucose POC Glucose 129 H Calcium Crossmatch
[2020-03-02] MEDS: SODIUM CHLORIDE 0.9% 500 ML IV SCH ×2 (16:56→22:40)
[2020-03-02] MEDS: POLYETHYLENE (MIRALAX) 17 GM PACK PO PRN (17:22)
[2020-03-02] MEDS: DOCUSATE SODIUM/SENNA 50/8.6MG TAB PO SCH (21:10)
[2020-03-02] MEDS: TERAZOSIN HCL 5 MG CAP PO SCH (21:10)
[2020-03-02] MEDS: ASPIRIN 81 MG ECTAB PO SCH (21:10)
[2020-03-03] MEDS: SODIUM CHLORIDE 0.9% 500 ML IV SCH ×2 (05:21→12:34)
[2020-03-03] MEDS: POLYETHYLENE (MIRALAX) 17 GM PACK PO PRN (05:24)
[2020-03-03] MEDS: OXYCODONE HCL IR 5 MG TAB (IMMEDIATE RELEASE) PO PRN ×2 (05:24→11:50)
[2020-03-03 06:40] LABS: Hemoglobin 8.1 g/dL (14.0-18.0); Mean Corpuscular Hemoglobin 30.9 pg (25-34); Mean Corpuscular Hgb Conc 33.8 g/dL (32-36); Mean Corpuscular Volume 91.6 fL (80-100); Mean Platelet Volume 10.8 fL (7.4-10.4); Platelet Count 203 K/uL (130-400); RDW Coefficient of Variation 13.6 % (11.5-14.5); RDW Standard Deviation 45.7 fL (36.4-46.3); Red Blood Count 2.62 M/uL (4.7-6.1); White Blood Count 8.15 K/uL (4.8-10.8)
[2020-03-03 07:19] LABS: BUN Creatinine Ratio 18.9 (10-20); Calcium 8.2 mg/dl (8.5-10.1); Est GFR (African American) 39.1; Est GFR (Non-African American) 33.7; Potassium 3.9 mmol/L (3.5-5.1)
[2020-03-03] MEDS: AMLODIPINE BESYLATE 5 MG TAB PO SCH (08:35)
[2020-03-03] MEDS: PANTOprazole 40 MG TAB PO SCH (08:35)
[2020-03-03] MEDS: carvediloL 12.5 MG TAB PO SCH (08:35)
[2020-03-03] MEDS: INSULIN ASPART 100 UNITS/ML 3 ML PEN SC SCH (08:35)
[2020-03-03] MEDS: allopurinoL 100 MG TAB PO SCH (08:35)
[2020-03-03] MEDS: PRAVASTATIN SOD 40 MG TAB PO SCH (08:35)
--- NOTE | 2020-03-03 08:54 | Hospitalist Progress Note ---
Date of Service March 03, 2020 Assessment & Plan (1) Chronic kidney disease (CKD): CKD documented in chart, no baseline Cr available. Postop POC Cr of 1.6. Cr jumped to 1.9 from 1.5 2 days ago Got IVF Cr stable at 1.9 today Unknown baseline ?LURDES on CKD or CKD Continue to hold losartan on discharge Attempt at contacting PCP was unsuccessful Patient stated he has a plaster helper but does not remember his name and couldn't find his office number He stated he will be able to contact his office once he gets home. I educated him on need to follow up with his PCP and plaster helper since we do not have access to their records Avoid nephrotoxins Will attempt again to try to reach PCP office. If discharged today, to get BMP in 3 days and follow up results with PCP/[employer] Educated patient on need to discuss with PCP/plaster helper about alternative antidiabetics to his home metformin. (2) Acute blood loss anemia: (3) S/P spinal surgery: 70yo M with a PMH of CAD with h/o CABG, DM II, HTN, gout who is POD#4 s/p L2-S1 decompression and fusion by Dr. Lopez. POD#4 s/p L2-S1 decompression and fusion by Dr. Lopez EBL #600ml VESNA drain removed Hb dropped from 10 to 8.8 post op now stable in 8s Pain well controlled Wound management per ortho PT/OT eval noted. (4) DM type 2 (diabetes mellitus, type 2): A1c: 5.8 Resume home diabetic meds on discharge. Patient needs close follow up with his PCP (5) CAD (coronary artery disease): H/o CABG >20 years ago. Recent cardiac catheterization 02/25/20 with instruction to continue medical treatment for secondary prevention of CAD Continue aspirin 81mg , pravastatin, carvedilol Can resume plavix on discharge (6) HTN (hypertension): Controlled Continue carvedilol and Norvasc Cr jumped to 1.9 from 1.5 2 days ago. Continue to hold losartan on discharge CM set up HH Patient advised to monitor BP at home and to follow up with PCP (7) Urinary retention: Continue terazosin. (8) GERD (gastroesophageal reflux disease): Continue PPI PCP: Kit Navarro Dispo: Per primary service Admission and Anticipated Discharge Date Admission Date: February 28, 2020 Subjective Patient seen and examined. Reports feeling better. Drain has been removed Reports some chronic right leg claudication with walking but improved Has no other complaints Physical Exam Constitutional: + well hydrated and + obese; no acute distress Eyes: PERRL, conjunctivae normal, anicteric sclerae ENMT: external ear and nose normal, oropharynx normal Respiratory: normal respiratory effort, lungs clear to auscultation Cardiovascular: RRR, no murmur, no edema Gastrointestinal (Abdomen): normal bowel sounds, soft, nontender, no hepatosplenomegaly Musculoskeletal: Clean dressing over lower back Neurologic: PERRL, EOMI, accommodation nl, no face palsy, no dysarthria Psychiatric: A+Ox3, euthymic affect Results & Data Results & Data ([facility]) Vital Signs (Past 12 Hours) Vital Signs Temp Pulse Pulse Resp BP Pulse Ox 03/03/20 07:27 36.8 C 71 18 116/69 93 03/02/20 23:26 36.9 C 74 14 118/63 92 03/02/20 21:08 73 125/71 Laboratory Results Laboratory Results - last 24 hr 03/02/20 03/02/20 03/02/20 12:12 17:03 20:56 WBC RBC Hgb Hct MCV MCH MCHC RDW Std Deviation RDW Coeff of Yola Plt Count MPV Sodium Potassium Chloride Carbon Dioxide Anion Gap BUN Creatinine Est Cr Clr Drug Dosing Est GFR ( Amer) Est GFR (Non-Af Amer) BUN/Creatinine Ratio Glucose POC Glucose 129 H 144 H 133 H Calcium 03/03/20 03/03/20 03/03/20 05:51 05:51 08:08 WBC 8.15 RBC 2.62 L Hgb 8.1 L Hct 24.0 L MCV 91.6 MCH 30.9 MCHC 33.8 RDW Std Deviation 45.7 RDW Coeff of Yola 13.6 Plt Count 203 MPV 10.8 H Sodium 135 L Potassium 3.9 Chloride 103 Carbon Dioxide 23 Anion Gap 9.0 BUN 37 H Creatinine 1.98 H Est Cr Clr Drug Dosing 48.0 Est GFR ( Amer) 39.1 Est GFR (Non-Af Amer) 33.7 BUN/Creatinine Ratio 18.9 Glucose 148 H POC Glucose 156 H Calcium 8.2 L
--- NOTE | 2020-03-03 10:11 | Discharge Summary ---
Date of Service March 03, 2020 Admission HPI Per Admitting Provider This is a 62-year-old male who presents with marked decline in status with back pain and bilateral leg weakness. After failing a course of nonoperative care is here for surgical intervention. Principal Diagnosis Lumbar spinal stenosis with neurogenic claudication Discharge Data Allergies Allergy/AdvReac Type Severity Reaction Status Date / Time erythromycin base AdvReac Severe Diarrhea Verified 02/28/20 09:02 iodine AdvReac Severe Vomiting Verified 02/28/20 09:02 shrimp AdvReac Severe Vomiting Verified 02/28/20 09:02 Consultations 02/28/20 15:16 Consult Case Management - Discharge Planning Routine Consult Hospitalist Routine Procedures Performed Operation Date: 02/28/20 09:55 Actual Procedures p L2-S1 Decompression and Fusion with Insertion of Interbody, Application of OsteoAmp and Bone Morphogenetic Protein, Spinal Cord Monitoring(Not Applicable) - Erlin Lopez DO Ordered Studies 02/28/20 09:55 FL fluoroscopy <1hr Routine FL lumbar spine 2-3V Routine 02/29/20 17:20 US venous doppler LE RT Urgent Hospital Course (1) Neurogenic claudication due to lumbar spinal stenosis: Patient went multilevel lumbar decompression fusion tolerated this well was taken to orthopedic floor postoperative. Postop day 1 he is up and ambulating progressed throughout the hospital stay. VESNA drain decreasing probably. Pain well controlled. Excellent strength testing. Subsequently discharged home. Discharge orders instructions from the chart for further view. Total Time Total Time Spent Total Time Spent (In Minutes): 20 minutes Discharge Plan Discharge Items Patient Disposition: Home - Self-Care Reason For Visit: Spinal Stenosis, Lumbar Region with neurogenic Cla Discharge Diagnosis: Lumbar spinal stenosis with neurogenic claudication Activity: As commented below Non-emergency contact: Primary Care Provider Call non-emergency contact if: you have any medication questions Follow-up/Referrals: Kit Navarro MD [Primary Care Provider] - Diet: Regular Addtl Attending Provider Instructions: ACTIVITY RECOMMENDATIONS: SELF CARE INSTRUCTIONS AFTER THORACIC/LUMBAR FUSIONS 1. You may walk to your tolerance. It is good exercise for your legs and back. Expect some back and intermittent leg aches and pains. 2. You may perform "counter-top" level activities (make a sandwich, marylou with a project, etc.). 3. No bending or lifting of more than 10 pounds or back twisting of any nature (roll like a log when turning in bed). 4. You may ride in a car for 20-30 minutes at a time. No driving until after your first visit with your doctor. 5. Frequent changes of position and restricting sitting to 30 minutes at a time will help limit the amount of back spasms and stiffness you may experience. 6. You may discontinue the use of ambulatory aids (cane, crutches, etc.) once your strength and confidence allow. 7. You may casino accountant the shower and let water strike your incision when you arrive home at least once daily. Do not take a tub bath, sit in a hot tub or go into a swimming pool until after your first recheck in the office. SPECIAL CARE INSTRUCTIONS: VERY IMPORTANT TO READ AND REVIEW A. Your surgical incision has been closed with a cosmetic suture under the skin that will dissolve in about 6 weeks. In 14 days, you can use a pair of clean scissors and cut the suture that is left outside of the skin at the ends of your incision. 1. The small skin tapes can be removed 7 days after surgery if they have not fallen off by that point. 2. You may keep the wound open to air as much as possible to promote healing after post-op day number 5 unless told otherwise by your doctor. 3. If you think the wound looks like it is becoming infected (redness or worsening drainage) and/or you are experiencing fever, chill or worsening back pain and muscle spasms, contact the office so that we may evaluate you as soon as possible. B. Complications are uncommon, but please contact us if you have any signs or symptoms of: 1. wound infection (fever higher than 102.5 degrees F, redness, separation of wound, drainage, or increasing pain from the incision) 2. blood clots in legs (pain, swelling, redness and warmth in legs) 3. urinary tract infection (fever higher than 102.5 degrees F, burning upon urination or increased frequency of urination) 4. nerve problems (inability to walk on your toes or heels, numbness, loss of bowel or bladder control) 5. any other symptoms that concern you C. Please call the office at if you have any concerns or ques tions about your operation or recovery. D. No smoking! Smoking drastically decreases the chance of a solid fusion. E. Do not take any anti-inflammatory medications (Indocin, Advil, Motrin, Aspirin, Naprosyn, etc.) as these may inhibit the chance of a solid fusion. Tylenol is okay to take for pain. MANAGING PAIN AFTER SPINAL SURGERY 1. Narcotic medication is intended for short-term use and will be provided for surgical pain. Surgical pain usually lasts for a period of 4-6 weeks. Narcotic medication includes Percocet, Vicodin, Darvocet, Tylenol #3 or Lortab. 2. Longer-term pain is more appropriately treated with non-narcotic medication such as Tylenol ES. 3. Muscle spasm is not appropriately treated with narcotics. Muscle relaxers such as Soma, Flexeril or Skelaxin can be used along with Tylenol ES. 4. Remember that we all live with some "aches and pains". This is not unusual or uncommon after an injury or as we get older. a. Back pain is expected and may include muscle spasms for 4 to 6 weeks after surgery. The pain should gradually improve. If the pain worsens for no apparent reason, please contact the office. b. Intermittent leg pain may also be experienced and should not be concerned about unless it worsens for no apparent reason. If so, please contact the office. 5. We will provide appropriate medication within the normal guidelines of their prescribed use. We will also be very cautious and aware of potential abuse and extended duration of patients' medication needs. a. Pain medications are for your comfort and to assist with sleep and rest so that the tissue can heal. They are not provided in order to return to normal activity and should not be used through the day. To do so or worsening pain at night can result from ongoing tissue damage and development of tolerance to the prescribed medicine. 6. Please allow 2-3 days to process refills. Prescriptions will not be mailed but must be picked up at the office. FOLLOW UP VISIT: Keep your scheduled follow-up appointment. Any questions, please call the office at . Pending Studies at Discharge: No Stand-Alone Forms: My [employer], Smoking Cessation Medications and DC Order Prescriptions: New oxycodone 5 mg tablet 5 mg PO Q6H PRN (Reason: pain, severe) Qty: 20 RF: 0 tramadol 50 mg tablet 50 mg PO Q6H PRN (Reason: pain, moderate) Qty: 20 RF: 0 Continued losartan [Cozaar] 50 mg Tablet 100 mg PO DAILY RF: 0 terazosin 5 mg Capsule 5 mg PO QPM RF: 0 carvedilol [Coreg] 12.5 mg Tablet 12.5 mg PO BID RF: 0 pravastatin [Pravachol] 40 mg Tablet 40 mg PO HS RF: 0 amlodipine [Norvasc] 2.5 mg Tablet 2.5 mg PO BID RF: 0 clopidogrel 75 mg Tablet 75 mg PO QAM RF: 0 allopurinol 100 mg Tablet 100 mg PO UD RF: 0 aspirin 81 mg Tablet,Delayed Release (Dr/Ec) 81 mg PO QPM RF: 0 metformin 1,000 mg Tablet 1,000 mg PO BID RF: 0 omeprazole 20 mg Tablet,Delayed Release (Dr/Ec) 20 mg PO QAM RF: 0 Discharge Orders: Discharge Order (Routine); Ordered 03/03/20 Ordered By: Erlin Lopez Admission Data Admit Date/Time: 02/28/20 13:51 Attending Provider: Erlin Lopez Admit Provider: Erlin Lopez Primary Care Provider: Kit Navarro Other Providers: Tana Cannon ; [facility] ; Bee Ordaz I.
== END 2020-03-03 12:49 | disposition home health service (06) | DRG 454 ==
LOC: ASU 08:30 → 3E 13:51